=== PATIENT | male | born 1955 | race Caucasian/White ===

== ENCOUNTER 2022-04-03 18:28 | Inpatient (IN) | payer MEDICARE, OTHER ==
[~2022-04-03] VITALS: Ht 170.2 cm; Wt 55.3 kg
[2022-04-03] MEDS ORDERED: BUPR-319 PO (20:25)
[2022-04-03] MEDS ORDERED: HYDR50TA62 PO (20:25)
[2022-04-03] MEDS ORDERED: PALI234D IM (20:25)
[2022-04-03] MEDS ORDERED: OLAN10TA73 PO (20:25)
[2022-04-03] MEDS ORDERED: DIVA500T54 PO (20:25)
[2022-04-03] MEDS ORDERED: LITH300C2 PO (20:25)
[2022-04-03 21:15] VITALS: BP 149/77
[2022-04-03] MEDS ORDERED: MAG HYDROX/AL HYDROX/SIMETH 30 ML LIQUID UDC PO PRN (21:30)
[2022-04-03] MEDS ORDERED: ACETAMINOPHEN 325 MG TABLET PO PRN (21:30)
[2022-04-03] MEDS ORDERED: MAGNESIUM HYDROXIDE 30 ML LIQUID UDC PO PRN (21:30)
--- NOTE | 2022-04-04 00:58 | NUR ---
Received 67 y/o male brought into M[facility] via ER staff on wheelchair. Patient was placed on a 5150 hold d/t being gravely disabled. Upon face to face assessment, pt noted to have the inability to provide care for self, responding to internal stimuli, having VH and AH. Displaying moments of confusion, needing help with ADL's, pt's belongings was collected and accounted for. Pt was given a shower, explained of the units rules, given snacks, and was brought to his room where he quickly fell asleep in his bed. Pt is ambulatory x1 assist d/t unsteady gait and balance. Prior to falling asleep, verbal explanation was provided r/t his patient's rights and advisement, and a copy was given and placed into patients folder and placed at bedside table. Pt has an old abrasion with noted eschar on (R) forearm, picture taken. Candy Cutter Hand is Afua, and psychiatrist is Teresa.
[2022-04-04] MEDS: LORAZEPAM 1 MG TABLET PO PRN ×3 (02:10→20:31)
[2022-04-04] MEDS: TEMAZEPAM 7.5 MG CAPSULE PO PRN (02:10)
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
[2022-04-04 08:03] VITALS: BP 120/66
[2022-04-04 08:31] LABS: BILIRUBIN,TOTAL 0.3 mg/dL (0.2-1.0); CREATININE 1.1 mg/dL (0.6-1.3); POTASSIUM 4.3 mmol/L (3.5-5.1); TOTAL PROTEIN, SERUM 6.8 g/dL (6.4-8.2)
[2022-04-04] MEDS: NICOTINE 21 MG/24HR PATCH TD SCH (08:57)
[2022-04-04] MEDS: DIVALPROEX 500 MG TABLET.DR PO SCH (17:26)
[2022-04-04 20:20] VITALS: BP 111/62
[2022-04-04] MEDS: OLANZAPINE 5 MG TABLET PO SCH (20:31)
[2022-04-05] MEDS: TEMAZEPAM 7.5 MG CAPSULE PO PRN (01:49)
--- NOTE | 2022-04-05 01:53 | NUR ---
Patient was wandering the halls without any specific direction multiple times this shift. Confused and disorientated this nurse gave temazepam 7.5 mg po prn. Brought pt to his bed and addressed safety precautions. Will continue to monitor.
[2022-04-05] MEDS: DIVALPROEX 500 MG TABLET.DR PO SCH ×2 (08:47→16:50)
[2022-04-05] MEDS: NICOTINE 21 MG/24HR PATCH TD SCH (08:47)
--- NOTE | 2022-04-05 10:02 | NUR ---
GPS: Nursing Notes: Request of [facility] Hearing: Staff gave a copy of 5250 to patient. Staff explained 5250 and patient stated "Okay.." Also, patient was inform that a certification review hearing will be held within four days. Patient's rights advocate will call him and provide assistance in preparing for the hearing and answer his questions. the court has been notified of this certification on this day via [facility] portal.
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
--- NOTE | 2022-04-05 13:56 | NUR ---
GPS: Nursing Notes: Impairments: Patient is awake and responding to his name, A/Ox2, compliant with his medications, disoriented, disorganized, responding to internal stimuli by mumbling to unseen others, stated "Also, I see pictures of everything..", impaired judgment, unkempt appearance, labile, unpredictable behavior, resistant with nursing care at times, unable to formulate a viable plan for self care, continue to monitor for safety, continue with treatment plan.
--- NOTE | 2022-04-05 15:16 | NUR ---
TONY Initial Discharge Note: Pt is currently homeless and reports he has been moving around a lot and is "between homes." TONY called and left voice mail for pt's sister requesting call back to discuss discharge plan TONY will continue to work with pt, family, and MD to ensure a safe and proper discharge plan.
--- NOTE | 2022-04-05 15:17 | NUR ---
TONY Family Contact: SW left a voicemail for patient's sister, Dorota ([phone]) requesting call back to discuss treatment and discharge plan. Waiting for a call back.
[2022-04-05] MEDS: LORAZEPAM 1 MG TABLET PO PRN ×2 (15:35→20:51)
[2022-04-05 16:13] VITALS: BP 106/64
[2022-04-05] MEDS: OLANZAPINE 5 MG TABLET PO SCH (20:51)
[2022-04-05 21:29] VITALS: BP 119/52
[2022-04-06 07:30] VITALS: BP 100/53
[2022-04-06] MEDS: NICOTINE 21 MG/24HR PATCH TD SCH (09:04)
[2022-04-06] MEDS: DIVALPROEX 500 MG TABLET.DR PO SCH ×2 (09:04→16:59)
--- NOTE | 2022-04-06 12:21 | NUR ---
SNF Referral: SW faxed patient's referral packet including: History and Physical, Consultation, Progress Notes, Medication List and Labs to the following facility for review and possible half-way placement: [facility] [address] [place] [address] (p: [phone], f: [phone]) attn: Serena.
[2022-04-06 15:51] VITALS: BP_SYST 107; BP_SYST 110; BP_SYST 119; BP_DIAS 57; BP_DIAS 65
[2022-04-06 16:01] VITALS: BP 119/65
[2022-04-06 16:02] VITALS: BP 110/57
[2022-04-06 16:03] VITALS: BP 107/57
--- NOTE | 2022-04-06 18:03 | NUR ---
GPS: Nursing Notes: Impairments: Patient is awake and responding to his name, compliant with his medications,eating his meals at least 75% of meal tray, participating in therapeutic groups, unable to formulate a viable plan for self care, episodes of pacing the hallway, A/Ox2, redirected and reoriented during shift, continue to monitor for safety, continue with treatment plan.
[2022-04-06 20:05] VITALS: BP 131/73
[2022-04-06] MEDS: OLANZAPINE 5 MG TABLET PO SCH (20:26)
[2022-04-06] MEDS: TEMAZEPAM 7.5 MG CAPSULE PO PRN (21:26)
[2022-04-07 07:30] VITALS: BP 92/66
[2022-04-07] MEDS: NICOTINE 21 MG/24HR PATCH TD SCH (08:48)
[2022-04-07] MEDS: DIVALPROEX 500 MG TABLET.DR PO SCH ×2 (08:48→16:23)
--- NOTE | 2022-04-07 10:19 | NUR ---
Patient had a court hearing today, mooner decided 14 Day probable cause for GD only.
--- NOTE | 2022-04-07 10:34 | NUR ---
Pt received lying in bed resting comfortably. Compliant with medications and care. No aggressive or combative behavior noted. Denies SI at this time.
--- NOTE | 2022-04-07 10:43 | NUR ---
SW Brief Substance Abuse Intervention: Patient was provided with a brief substance abuse intervention and referred to the following smoking cessation programs: [facility] ([phone]); [facility] ([phone]); [employer] [facility] (141-621-7265).
--- NOTE | 2022-04-07 10:58 | NUR ---
TONY Discharge Plan Update: SW called and spoke with Erlin Maurice ([phone]) with [facility], pt's mental health provider in [place]. Erlin ivey pt has room and board at [address], [place] and has also been at [facility] crisis facility in [place] ([phone]). Erlin ivey pt can return to room and board when he is ready to return. Erlin ivey [facility] is another option in [place] if he is not accepted in SNF.
[2022-04-07 16:16] VITALS: BP 102/68
[2022-04-07 20:13] VITALS: BP 122/74
[2022-04-07] MEDS: OLANZAPINE 5 MG TABLET PO SCH (20:26)
[2022-04-07] MEDS: LORAZEPAM 1 MG TABLET PO PRN (20:27)
[2022-04-08 07:46] VITALS: BP 104/56
[2022-04-08] MEDS: NICOTINE 21 MG/24HR PATCH TD SCH (09:10)
[2022-04-08] MEDS: DIVALPROEX 500 MG TABLET.DR PO SCH ×2 (09:11→17:18)
--- NOTE | 2022-04-08 14:44 | NUR ---
Gps/Chisel Trimmer- Walks around back and forth the hallway, talking to himself, responding to internal stimuli. Encouraged to attend his group activity , redirectable, interacts when engaged
[2022-04-08 17:19] VITALS: BP 113/68
[2022-04-08 20:01] VITALS: BP 120/69
[2022-04-08] MEDS: OLANZAPINE 5 MG TABLET PO SCH (20:31)
[2022-04-08] MEDS: TEMAZEPAM 7.5 MG CAPSULE PO PRN (21:25)
[2022-04-09 07:48] VITALS: BP 102/70
[2022-04-09] MEDS: NICOTINE 21 MG/24HR PATCH TD SCH (08:18)
[2022-04-09] MEDS: DIVALPROEX 500 MG TABLET.DR PO SCH ×2 (08:18→16:26)
--- NOTE | 2022-04-09 09:57 | NUR ---
TONY Family Contact: SW left a voicemail for patient's sister, Dorota ([phone]) requesting call back to discuss discharge plan and additional questions.
--- NOTE | 2022-04-09 09:59 | NUR ---
TONY Family Contact: SW contacted pt's daughter, Yeimi ([phone]) and left a voicemail to discuss pt's discharge plan and additional questions.
--- NOTE | 2022-04-09 10:01 | NUR ---
TONY Family Contact: SW contacted pt's brother, Ananda ([phone]) and left a voicemail to discuss pt's discharge plan and additional questions.
--- NOTE | 2022-04-09 14:29 | NUR ---
Gps/Dosimetrist- Observed attending his group activity in the [place]. , interacting with the R.T. Speech remains confused and incoherent, follows simple directions. Talking to himself .
[2022-04-09 17:05] VITALS: BP 125/76
[2022-04-09 20:05] VITALS: BP 102/61
[2022-04-09] MEDS: OLANZAPINE 5 MG TABLET PO SCH (20:11)
--- NOTE | 2022-04-10 05:23 | NUR ---
GPS NOTES: Patient pacing in the hallway and talking to himself, not able to hold meaningful conversations. He is calm and cooperative with treatment plans. He is med compliant. He slept well during shift.
[2022-04-10 07:37] VITALS: BP 111/63
[2022-04-10] MEDS: NICOTINE 21 MG/24HR PATCH TD SCH (08:36)
[2022-04-10] MEDS: DIVALPROEX 500 MG TABLET.DR PO SCH ×2 (08:36→16:27)
--- NOTE | 2022-04-10 14:04 | NUR ---
Gps/Devulcanizer Loader- Constantly pacing back and forth the hallway , talking to himself , responding to internal stimuli. Interacts when engaged. Meds. compliant, denies any pain, no discomfort noted. Attended part of am group activity . Patient was able to talked to his daughter Yeimi , patient denies having a daughter, when informed daughter was to talk to him , and she's on the phone, then he acknowledged he has a daughter.
[2022-04-10 16:05] VITALS: BP 94/68
[2022-04-10 19:47] VITALS: BP 100/60
[2022-04-10] MEDS: OLANZAPINE 5 MG TABLET PO SCH (20:09)
--- NOTE | 2022-04-10 20:30 | NUR ---
Received patient pacing the hallway. he is noted anxious but he is able to be redirected. he is able to verbalized his feelings. He appears to be responding to internal stimuli. Patient is able to comply with his medication regiment. He is reassured for his safety. safety and fall precautions are in place, his V/s are stable. will continue to monitor.
[2022-04-11 07:59] VITALS: BP 94/62
[2022-04-11] MEDS: NICOTINE 21 MG/24HR PATCH TD SCH (08:36)
[2022-04-11] MEDS: DIVALPROEX 500 MG TABLET.DR PO SCH ×2 (08:36→16:36)
[2022-04-11 15:33] VITALS: BP 107/61
[2022-04-11 20:08] VITALS: BP 109/64
[2022-04-11] MEDS: OLANZAPINE 5 MG TABLET PO SCH (21:09)
[2022-04-12] MEDS: TEMAZEPAM 7.5 MG CAPSULE PO PRN (00:37)
--- NOTE | 2022-04-12 06:01 | NUR ---
PATIENT SLEPT FOR APPROX. 6 HRS THOUGH THE NIGHT. HE A/O X 2 TO 3. HE CONTINUE TALKING TO HIMSELF AND RESPONDING TO INTERNAL STIMULI. HE IS PREOCCUPIED ABOUT HIS IMPENDING DISCHARGED FOR LATER TODAY. HE IS REASSURED FOR HIS SAFETY. SAFETY AND FALL PRECAUTIONS REMAIN IN PLACE. V/S STABLE. ALL HIS NEED ARE MET. WILL CONTINUE TO MONITOR.
[2022-04-12 08:19] VITALS: BP 108/68
[2022-04-12] MEDS: DIVALPROEX 500 MG TABLET.DR PO SCH (08:51)
[2022-04-12] MEDS: NICOTINE 21 MG/24HR PATCH TD SCH (08:51)
--- NOTE | 2022-04-12 12:35 | NUR ---
TONY Discharge Note: Pt will be discharged to [facility] ([phone]) [address] [place] [address] via Ambulance transportation at 3PM. TONY spoke with admin coordinator Jessenia at the facility who states they are ready to accept the patient today in room 45B. Pt is aware and agreeable with discharge plan. TONY contacted pts sister, Dorota, who is agreeable with the discharge plan. Pt is alert and oriented x3, is unable to plan for self-care at this time. However, pt is willing to accept care at SNF. Pt denies any suicidal or homicidal ideation. Pt will follow-up at the facility with Psychiatrist, Dr. Moore ([phone]) and Will Call Order Clerk, Dr. Beltrán. Pt presents with calm mood and congruent affect. PHARMACY: [facility] ([phone]) [address] [place] [address]. Pt presents with calm mood and congruent affect.
[2022-04-12 16:04] VITALS: BP 92/62
--- NOTE | 2022-04-12 16:13 | NUR ---
Clinical SW Note: Pt's nurse Kandi ([phone]) from [facility] returned this SW's call and stated that pt received his last Invega Trinza dose on January 12, 2022 and he was due on April 06, 2023. SW thanked Kandi and stated she will inform the psychiatrist. Kandi stated pt has been receiving Invega Trinza since 2017. Kandi stated she is available anytime for further questions.
--- NOTE | 2022-04-12 16:17 | NUR ---
TONY Family Contact: SW contacted pt's brother, Ananda ([phone]) and discussed pt's discharge plan and provided discharge details for [facility]. Ananda was grateful for the information.
--- NOTE | 2022-04-12 16:45 | NUR ---
GPS: Nursing Notes: Discharge Notes: Patient is awake and responding to his name, cooperative with nursing care, following staff directions, compliant with his medications, denies SI/HI, denies AH/VH, denies pain or discomfort, denies SOB. Patient discharge to [facility] at [address] [place] [address] [phone] . report given to facility's nurse - WILLIAM Austin paper mill supervisor, transported to facility via ambulance, took all his belonging and valuables. Patient's brother Cyndie Malave was notified by social media specialist of discharge. Patient will follow up with Dr. Moore (psychiatrist) and Dr. Beltrán (concrete mixer operator) at the facility for aftercare,
== END 2022-04-12 16:45 | DRG 885 ==
LOC: ER 18:28 → GPS 19:10 → ER 21:12
PROVIDERS: ADMIT Psychiatry & Neurology Psychosomatic Medicine; ATTEND Nurse Practitioner Acute Care
DX: F25.0 Schizoaffective disorder, bipolar type (principal); E44.1 Mild protein-calorie malnutrition; Z68.1 Body mass index [BMI] 19.9 or less, adult; J44.9 Chronic obstructive pulmonary disease, unspecified; E86.0 Dehydration; F17.200 Nicotine dependence, unspecified, uncomplicated; K21.9 Gastro-esophageal reflux disease without esophagitis
CPT/HCPCS: 36415; 70450